=== PATIENT | male | born 1990 | race Caucasian/White ===

== ENCOUNTER 2022-05-27 11:00 | Outpatient (REF) | payer OTHER, SELFPAY | END 2022-05-27 11:01 | disposition home or self-care (01) | LOC: HO.HOSX 11:00 | PROVIDERS: PCP Nurse Practitioner Family; Visit Provider Orthopaedic Surgery | DX: M54.2 Cervicalgia (principal) | CPT/HCPCS: 99202 ==

== ENCOUNTER 2022-06-08 15:06 | Outpatient (REF) | payer OTHER, SELFPAY ==
--- NOTE | ~2022-06-08 | XR_ITS ---
EXAMINATION: XR CERVICAL SPINE CLINICAL INFORMATION: Neck pain. COMPARISON: None. TECHNIQUE: 6 views of the cervical spine, inclusive of flexion and extension views, were obtained. FINDINGS: The vertebral heights and alignment is normal. No intrinsic bony abnormality. The disc heights and neural foramina are well maintained. There is mild irregularity involving this C6 superior endplate. The rest of the endplates and bone density are normal. On oblique views the neural foramina are widely patent. No acute fracture or subluxation seen. The surrounding prevertebral soft tissues are unremarkable. XR/XR cervical spine 5V IMPRESSION: No acute fracture, dislocation or subluxation seen.
--- NOTE | ~2022-06-08 | CT_ITS ---
CT CERVICAL SPINE WITHOUT CONTRAST HISTORY: 31 years old Male, cervicalgia TECHNIQUE: CT images of the cervical spine were acquired without intravenous contrast. This CT examination was performed using dose optimization techniques as appropriate, variously including the following: *Automated exposure control *Adjustment of mA and/or kV according to patient size (this includes techniques or standardized protocols for targeted exams where dose is matched to indication/reason for exam; i.e. extremities or head) *Use of iterative reconstruction technique DLP: 4-1 mGy-cm COMPARISON: None available. FINDINGS: There is an age indeterminate C6 superior endplate compression fracture resulting in mild height loss without significant bony retropulsion. Otherwise, no acute osseous injury or traumatic subluxation within the cervical spine. No prevertebral soft tissue swelling. The craniocervical junction is intact. Straightening of the normal cervical lordosis.. There is no significant spondylolisthesis. No suspicious osseous lesion. The intervertebral disc space heights are preserved. No spinal canal or neural foraminal stenosis at any level. OTHER: Visualized lung apices are clear. Indeterminate metallic foreign bodies within the right clivus, right retroclival soft tissues, right prevertebral soft tissues and nasopharynx. Right-sided palatine tonsilloliths. CT/CT cervical spine wo IV con IMPRESSION: There is an age indeterminate C6 superior endplate compression fracture resulting in mild height loss without significant bony retropulsion. Otherwise, no acute osseous injury or traumatic subluxation within the cervical spine. Indeterminate metallic foreign bodies within the right clivus, right retroclival soft tissues, right prevertebral soft tissues and nasopharynx.
== END 2022-06-08 15:07 | disposition home or self-care (01) ==
LOC: HO.CT 15:06
PROVIDERS: PCP Family Medicine; Visit Provider Orthopaedic Surgery
DX: M54.2 Cervicalgia (principal)
CPT/HCPCS: 72050; 72125

== ENCOUNTER 2022-06-10 22:12 | Emergency (ER) | payer OTHER, SELFPAY ==
[2022-06-10 22:35] VITALS: BP 142/93; PULSE 100; RESP 18; TEMP 36.3; O2SAT 99; BMI 25.7
--- NOTE | 2022-06-11 00:23 | ED_ITS ---
HPI - Neck Pain/Injury General Chief Complaint: Neck Pain/Injury Stated Complaint: neck pain, from neck injury Time Seen by Provider: 06/11/22 00:10 Source: patient Mode of arrival: ambulatory Limitations: no limitations History of Present Illness HPI Narrative: Patient comes to the emergency room complaining of chronic neck pain. Patient states that he has history of 2 cervical fractures, 1 of them over 10 years ago, 2nd 1 approximately 1 year ago. Patient states that for the last year he constantly has 3 to 4/10 pain constantly. Over the last month, the pain has been 8 to 10/10. Patient was seen by his primary care physician over a month ago, CT scan was done couple of days ago, patient has not received the CT scans yet. Patient states that for the last month he has had trouble moving his neck up and down, but is much worse rotating the neck sideways. Patient denies fever chills. Patient states that today there is nothing new regarding his symptoms. He is just tired of the constant pain. Patient has been prescribed gabapentin in the past but did not do anything for him. Patient states that sometimes he has burning sensation in his fingertips/pins and needles. Related Data Previous Rx's Medication Instructions Recorded cyclobenzaprine 10 mg tablet 10 mg PO TID PRN muscle spasm 30 05/11/22 days #90 tabs ondansetron HCl 4 mg tablet 4 mg PO Q6H PRN nausea and 06/11/22 vomiting #10 tabs oxycodone 5 mg tablet 5 mg PO BID PRN pain #8 tabs 06/11/22 Allergies Allergy/AdvReac Type Severity Reaction Status Date / Time morphine Allergy Mild patch on Verified 05/27/22 11:11 stomach Review of Systems Review of Systems: Constitutional : No Weight loss, No Fever, No Chills, No Night Sweats, No Fatigue, No Malaise ENT/Mouth : No Hearing loss, No Ear Pain, No Nasal Congestion, No Sinus Pain, No Hoarseness, No sore throat, No Rhinorrhea, No Swallowing Difficulty Eyes: No Eye Pain, No Swelling, No Redness, No Foreign Body, No Discharge, No Vision Changes Cardiovascular : No Chest Pain, No SOB, No Dyspnea on Exertion, No Orthopnea, No Edema, No Palpitations Respiratory : No Cough, No Sputum, No Wheezing, No Smoke Exposure, No Dyspnea Gastrointestinal : No Nausea, No Vomiting, No Diarrhea, No Constipation, No abdominal Pain, No Hematochezia, No Melena Genitourinary : no irregular bleeding, No Dysuria, No Urinary Frequency, No Hematuria, No Urinary Incontinence, No Urgency, No Flank Pain, No Urinary Flow Changes, No Hesitancy Musculoskeletal : Complaining of chronic posterior neck pain, No joint pain, No Myalgias, No Joint Swelling Skin : No Skin Lesions, No rash Neuro : No Weakness, No Numbness, No Paresthesias, No Loss of Consciousness, No Dizziness, No Headache Psych : No Anxiety/Panic, No Depression, No SI/HI/AH/VH, No Social Issues, Heme/Lymph: No Bruising, No Bleeding,No Lymphadenopathy Endocrine : No Polyuria, No Polydipsia, No Temperature Intolerance [facility] Past Medical History Medical History (Updated 06/11/22 @ 00:33 by Stormy Torrez MD) Neck fracture Social History Social History Housing: Apartment Patient Tobacco Use Status: Never used Tobacco e-Cigarette/Vaping Use: Never Used Second Hand Smoke Exposure: No Advance Directives: No Advance Directives Information Provided: No service: No Current occupational status: unemployed Current occupational exposures/hazards: No Physical Exam Vital Signs: Vital Signs: Last Vital Signs Temp 97.4 F 06/10/22 22:35 Pulse 100 06/10/22 22:35 Resp 18 06/10/22 22:35 BP 142/93 H 06/10/22 22:35 Pulse Ox 99 06/10/22 22:35 O2 Del Method 06/10/22 22:35 BMI result Body Mass Index 25.7 Const: Other: Appearance: Alert. Oriented X3. No acute distress. Eyes: Pupils equal, round and reactive to light. ENT: Pharynx normal. Neck: Pain to palpation over C6, C7. Range of motion is very limited to flexion extension and sideways rotation. CVS: Normal heart rate and rhythm. Pulses normal. Normal S1 and S2 Respiratory: No respiratory distress. Breath sounds normal. No Wheezing. No rales Abdomen: Soft and nontender. No rigidity. No distention. Skin: Skin warm and dry. Normal skin color. Normal skin turgor. Extremities: No lower extremity edema. No Lacerations. No Rash Neuro: Oriented X 3. No motor deficit. No sensory deficit. Moving all extremities. No slurred speech. CN 2 through 12 grossly intact Psych: calm, cooperative, normal affect Course Course Course Narrative: Patient has chronic neck pain. History of cervical fractures x2. Since patient fractured his neck over a year ago, patient has had chronic neck pain. Patient states he has had severe pain for several weeks now. Patient reports radiculopathy to both upper extremities. Patient has not had any fever or chills. Meningitis is not suspected. Patient had a CT scan done 2 days ago here at this facility, outpatient. The CT scan has not been read yet. I discussed with our radiologist yet if we can ask our radiologist on-call to read the CT scan today follow up will have to scan the patient again -patient was given 1 dose of IM Toradol and 2 mg of Valium -despite Toradol and down, patient continues having pain. Patient given 1 dose of IM Dilaudid. P.o. Zofran. -I discussed the CT findings with the patient, patient has an age indeterminate C6 superior end plate compression fracture. Patient states that this is what he was told 1 year ago when he fractured his neck. -patient has already been seen by Dr. Mondragon from orthopedics. Patient will likely need a referral to Spine surgery (neurology orthopedics) Also, patient has an appointment pending with a pain specialist. -patient received 1 dose of IM Dilaudid -I had a prolonged conversation with the patient regarding his prescription for opiates, addiction. Patient states that he is very well aware. -patient agrees to use his prescription judiciously, and avoid narcotics. Patient states he mostly will use it at bedtime, patient has not slept in several days due to pain Medications Administered Discontinued Medications Generic Name Dose Route Start Last Admin Trade Name Keo PRN Reason Stop Dose Admin Diazepam 2 mg 06/11/22 00:19 06/11/22 00:26 Diazepam 2 Mg Tablet PO 06/11/22 00:20 2 mg ONCE ONE Administration Ketorolac Tromethamine 60 mg 06/11/22 00:19 06/11/22 00:26 Ketorolac Tromethamine 60 Mg/2 Ml Vial IM 06/11/22 00:20 60 mg ONCE ONE Administration Medical Decision Making Differential Diagnosis Differential Diagnoses: The differential diagnosis associated with the presentation includes (Meningitis, cervical fracture) Independent Interpretation I performed an independent interpretation of an: CT Scan (My interpretation: Questionable fracture in C6. I will wait for the radiology report) Radiology Impression Discussion of test interpretation with radiology: I have reviewed the radiologist's reading. Radiologist Impression: FINDINGS: There is an age indeterminate C6 superior endplate compression fracture resulting in mild height loss without significant bony retropulsion. Otherwise, no acute osseous injury or traumatic subluxation within the cervical spine. No prevertebral soft tissue swelling.? The craniocervical junction is intact. Straightening of the normal cervical lordosis.. There is no significant spondylolisthesis. No suspicious osseous lesion. The intervertebral disc space heights are preserved. No spinal canal or neural foraminal stenosis at any level. OTHER: Visualized lung apices are clear. Indeterminate metallic foreign bodies within the right clivus, right retroclival soft tissues, right prevertebral soft tissues and nasopharynx. Right-sided palatine tonsilloliths. CT/CT cervical spine wo IV con IMPRESSION: There is an age indeterminate C6 superior endplate compression fracture resulting in mild height loss without significant bony retropulsion. Otherwise, no acute osseous injury or traumatic subluxation within the cervical spine. ? Indeterminate metallic foreign bodies within the right clivus, right retroclival soft tissues, right prevertebral soft tissues and nasopharynx. Discharge Plan Discharge Clinical Impression: Chronic neck pain Patient Disposition: Home, Self-Care Instructions: Vertebral Compression Fracture (ED) Additional Instructions: Please follow-up with your primary care physician tomorrow. If you have any worsening or new symptoms, please return to the emergency room or call 911 Prescriptions: New oxycodone 5 mg tablet 5 mg PO BID PRN (Reason: pain) Qty: 8 0RF Rx Instructions: Partial Fill upon patient request. ondansetron HCl 4 mg tablet 4 mg PO Q6H PRN (Reason: nausea and vomiting) Qty: 10 0RF No Action cyclobenzaprine 10 mg tablet 10 mg PO TID PRN (Reason: muscle spasm) 30 Days Qty: 90 0RF
[2022-06-11] MEDS: diazePAM 2 MG TABLET PO (00:26)
[2022-06-11] MEDS: Ketorolac Tromethamine 60 MG/2 ML VIAL IM (00:26)
[2022-06-11 01:15] VITALS: RESP 15
[2022-06-11] MEDS: Ondansetron ODT 4 MG TAB.RAPDIS TRANSLINGU (01:15)
[2022-06-11] MEDS: HYDROmorphone HCl 0.5 MG/0.5 ML SYRINGE 0.1 MG IM (01:15)
== END 2022-06-11 01:31 | disposition home or self-care (01) ==
PROVIDERS: Emergency Provider Emergency Medicine; PCP Family Medicine
DX: M54.2 Cervicalgia (principal); Z79.899 Other long term (current) drug therapy
CPT/HCPCS: 96372; 99284; J1170; J1885

== ENCOUNTER → 2022-06-27 08:01 | Outpatient (BNVA) | payer OTHER, SELFPAY | PROVIDERS: PCP Family Medicine; Visit Provider Internal Medicine | DX: M54.2 Cervicalgia (principal) | CPT/HCPCS: 99202 ==

== ENCOUNTER 2022-10-27 07:42 | Outpatient (REF) | payer OTHER, SELFPAY ==
[2022-10-27 10:58] LABS: MANUAL DIFF FLAG NO
[2022-10-27 11:29] LABS: Basophils Absolute Auto 0.1 X10*3/uL (0.0-0.2); Basophils Percent Auto 0.9 % (0-2); Eosinophils Absolute Auto 0.2 X10*3/uL (0.0-0.4); Eosinophils Percent Auto 3.1 % (0-4); Hematocrit 47.8 % (42.0-52.0); Hemoglobin 15.5 g/dl (14.0-18.0); Imm Gran Pct Auto 1.6 % (0.0-0.4); Lymphocytes Absolute Auto 2.6 X10*3/uL (1.2-4.9); Lymphocytes Percent Auto 40.4 % (20-40); Mean Corpuscular HGB Conc 32.4 g/dl (31.0-36.0); Mean Corpuscular Hemoglobin 29.1 pg (27.0-33.0); Mean Corpuscular Volume 89.8 fL (80.0-98.0); Mean Platelet Volume 9.4 fL (9.4-12.4); Monocytes Absolute Auto 0.6 X10*3/uL (0.1-1.2); Monocytes Percent Auto 8.5 % (2-11); Neutrophils Absolute Auto 2.9 x10*3/uL (2.0-8.3); Neutrophils Percent Auto 45.5 % (45-73); Platelet Count 234 X10*3/uL (160-400); Red Blood Count 5.32 X10*6/uL (4.60-5.80); Red Cell Distribution Width 11.9 % (11.0-16.0); White Blood Count 6.4 X10*3/uL (4.8-10.8)
[2022-10-27 11:37] LABS: Alanine Aminotransferase 39 U/L (0-40); Albumin Level 4.4 g/dL (3.5-5.0); Alkaline Phosphatase 76 U/L (39-117); Anion Gap 12 (12-20); Aspartate Amino Transferase 25 U/L (5-37); Bilirubin Total 0.3 mg/dL (0.0-1.0); Blood Urea Nitrogen 17 mg/dL (9-16); Calcium 9.7 mg/dL (8.4-10.2); Carbon Dioxide 28 mmol/L (22-29); Chloride 105 mmol/L (96-108); Cholesterol 201 mg/dL; Estimated Glomerular Filt Rate > 60; Glucose Fasting 89 mg/dL (60-99); HDL Cholesterol 40 mg/dL; LDL Cholesterol Calculated 112 mg/dl; Potassium 4.7 mmol/L (3.3-5.1); Sodium 140 mmol/L (135-145); Total Protein 7.7 g/dL (6.5-8.0); Triglycerides 247 mg/dL
[2022-10-27 11:54] LABS: TSH reflex Free T4 3.73 uIU/mL (0.32-4.0)
== END 2022-10-27 07:43 | disposition home or self-care (01) ==
LOC: HO.WFDLDS 07:42
PROVIDERS: Visit Provider Nurse Practitioner Family
DX: Z00.00 Encounter for general adult medical examination without abnormal findings (principal); F41.9 Anxiety disorder, unspecified; F32.A Depression, unspecified
CPT/HCPCS: 36415; 80053; 80061; 84443; 85025

== ENCOUNTER 2022-11-02 09:25 | Outpatient (REF) | payer OTHER, SELFPAY ==
[2022-11-11 21:17] LABS: PSA, Ultra Sensitive 0.64 ng/mL
== END 2022-11-02 09:26 | disposition home or self-care (01) ==
LOC: HO.WFDLDS 09:25
PROVIDERS: Visit Provider Nurse Practitioner Family
DX: Z12.5 Encounter for screening for malignant neoplasm of prostate (principal); R39.11 Hesitancy of micturition
CPT/HCPCS: 36415; 84153

== ENCOUNTER 2023-01-03 12:50 | Outpatient (REF) | payer OTHER, SELFPAY ==
[2023-01-03 14:49] LABS: Cholesterol 194 mg/dL; HDL Cholesterol 42 mg/dL; LDL Cholesterol Calculated 118 mg/dl; Triglycerides 172 mg/dL
== END 2023-01-03 12:51 | disposition home or self-care (01) ==
LOC: HO.WFDLDS 12:50
PROVIDERS: Visit Provider Nurse Practitioner Family
DX: E78.1 Pure hyperglyceridemia (principal)
CPT/HCPCS: 36415; 80061

== ENCOUNTER 2023-01-04 09:05 | Outpatient (AMB) | payer OTHER, SELFPAY ==
--- NOTE | 2023-01-04 09:10 | A.OFFPC_ITS ---
Vital Signs 01/04/23 09:11 Height 6 ft Weight 204 lb BMI 27.7 BP 112/64 Blood Pressure Location Rt brachial Position Sitting Respiration 16 Pulse 72 Pulse Source Pulse Oximeter Temp 98.7 F Temp Source Temporal Artery Scan Pulse Oximetry (%) 100 Oxygen Delivery Method Room Air Intake Visit Reasons: 2 mos anxiety, depression Intake Note: Patient presents today for a follow up for anxiety and depression. Patient see's Mani Steele for psychiatry who prescribes patient with Clonazepam 1mg twice daily. Patient reports no concerns today. Compensator Required: No Accompanied by: Self / Same As Patient Allergies morphine Allergy (Mild, Verified 01/04/23 09:29) patch on stomach Medication List - Last Reconciled 01/04/23 by Eliseo Dumont CNP clonazepam 1 mg PO BID cyclobenzaprine 10 mg PO TID PRN 30 days Tobacco use date assessed: 09/28/22 Dental Screening Dental Screen Date: 01/04/23 Did you have a dental visit in the last 12 months?: No Did you have a dental problem in the last 6 months where you did not have access to dental care?: No Was dental information given to patient?: Yes HPI HPI Comments History of Present Illness Details 32-year-old male presents for anxiety and depression follow-up He notes he is followed by [facility] and has a therapist whom he sees every two weeks and a psychiatrist every 2 weeks. His psychiatrist manages his psychotropic medications. He is currently on clonazepam 1 mg twice daily. He notes he has been maintaining healthy and low fat diet. [facility], [facility] Medical History Diverticulitis Neck fracture Surgical History H/O resection of small bowel History of appendectomy Family History Mother Anxiety Father Anxiety Family/Other Anxiety Social History Housing: Apartment Patient Tobacco Use Status: Never used Tobacco e-Cigarette/Vaping Use: Former Use Second Hand Smoke Exposure: No service: No Current occupational status: employed Current occupation: [employer] Current occupational exposures/hazards: No Cognitive needs: No Hearing needs: No Vision needs: No Questionnaire PHQ-9 Over the last 2 weeks, how often have you been bothered by any of the following problems? 1. Little interest or pleasure in doing things: not at all 2. Feeling down, depressed, or hopeless: not at all 3. Trouble falling or staying asleep, or sleeping too much: not at all 4. Feeling tired or having little energy: not at all 5. Poor appetite or overeating: more than half the days 6. Feeling bad about yourself - or that you are a failure or have let yourself or your family down: not at all 7. Trouble concentrating on things, such as reading the newspaper or watching television: not at all 8. Moving or speaking so slowly that other people could have noticed. Or the opposite - being so fidgety or restless that you have been moving around a lot more than usual: not at all 9. Thoughts that you would be better off or of hurting yourself in some way: not at all Total score: 2 Depression Screening Interpretation: Negative Source: Developed by Drs. Geo Templeton, Ludmila Golden, Ashu Wong and colleagues, with an educational janki from [employer]. Thrive Questionnaire Date Thrive assessed: 05/06/22 DAR-7 AMB Questionnaire DAR-7 Date DAR - 7 assessed: 01/04/23 Feeling nervous, anxious, or on edge: 1 = Several days Not being able to stop or control worryin = Not at all Worrying too much about different things: 0 = Not at all Trouble relaxin = Several days Being so restless that it is hard to sit still: 0 = Not at all Becoming easily annoyed or irritable: 1 = Several days Feeling afraid as if something awful might happen: 0 = Not at all Total DAR-7 score (0-4 normal; 5-9 mild; 10-14 moderate; 15-21 severe): 3 Source: Developed by Drs. Geo Templeton, Ludmila Golden, Ashu Wong and colleagues, with an educational janki from [employer]. DAR-7 Assessment Billing DAR-7 Assessment Tool: DAR-7 Assessment 52036 Review of Systems Const Details: Const Denies chills, Denies fatigue, Denies fever(s), Denies headache(s) and Denies weakness ENT Denies dizziness and Denies headache(s) Card Denies chest pain, Denies lightheadedness, Denies dyspnea and Denies other (Palpitations) Resp Denies cough, Denies dyspnea, Denies wheezing and Denies other ( shortness of breath) GI Denies abdominal pain, Denies melena, Denies hematochezia, Denies change in bowel habits, Denies dyspepsia and Denies nausea Denies hematuria and Denies dysuria Musc Denies abnormal gait, Denies myalgias, Denies arthralgias, Denies numbness and Denies tingling Skin/Breast Denies rash, Denies unusual bruising and Denies wounds Neuro Denies abnormal gait, Denies dizziness, Denies headache(s), Denies memory loss, Denies numbness, Denies Sensory deficit (Neuro), Denies tingling and Denies weakness Psych Denies anxiety, Denies depression, Denies memory loss Endo Denies cold intolerance, Denies fatigue, Denies heat intolerance, Denies polydipsia and Denies polyuria Aller/Immun Denies wheezing Physical exam (Primary Care) Vital Signs: Last Vital Signs Temp 98.7 F 01/04/23 09:11 Pulse 72 01/04/23 09:11 Resp 16 01/04/23 09:11 BP 112/64 01/04/23 09:11 Pulse Ox 100 01/04/23 09:11 Oxygen Delivery Method Room Air 01/04/23 09:11 BMI result Body Mass Index 27.7 Tobacco/Smoking Status: Tobacco use Status Tobacco use date assessed 09/28/22 01/04/23 09:12 Patient Tobacco Use Status Never used Tobacco 01/04/23 09:12 e-Cigarette/Vaping Use Former Use 01/04/23 09:12 PHQ-9: PHQ-9 Score PHQ-9: Total score 2 01/04/23 09:32 Depression Screening Interpretation: Negative Thrive Assessment: Date of Thrive Assessment Date Thrive assessed 05/06/22 01/04/23 09:12 Const Other: General: no acute distress and well developed Nutritional Appearance: well nourished Orientation/consciousness: patient oriented x3 HENMT Head: Yes normocephalic and Yes atraumatic Eyes General: appearance normal, both eyes and all related structures Pupils: Equal, round and reactive pupils present EOM: EOMs intact bilaterally Resp Effort & Inspection: normal respiratory effort Auscultation: clear to auscultation bilaterally Cardio Rate: regular rate Rhythm: regular rhythm Heart sounds: S1 normal heart sound present, S2 normal heart sound present, no gallops, no murmurs and no rubs GI Palpation (GI): No Abdominal aortic bruit present, Soft to palpation, nontender, No hepatosplenomegaly present and No Rebound tenderness present Auscultation: normal bowel sounds General: Yes no CVA tenderness Back/Spine/Pelvis Back: no CVA tenderness Cervical Spine: cervical ROM normal and No Cervical spine tenderness Thoracic/Lumbar Spine: thoraco-lumbar ROM normal, No pain with thoraco-lumbar ROM, No thoracic spinal tenderness and No lumbar spinal tenderness Extrem General: Yes normal to inspection, No edema and No calf tenderness Skin General: warm and dry. Normal skin color. Normal skin turgor Lesions: no lesions Rashes: no rashes Trauma: no lacerations or abrasions Wounds: no wounds Nails: normal Neuro General: patient oriented x3, gait normal and no focal neuro deficit Cranial nerves: Yes Equal, round and reactive pupils present Cognition (Neuro): normal cognition Gait exam (Neuro): Normal gait present Sensory Exam: No Sensory deficit (Neuro) Psych Appearance: grossly normal Affect: normal affect Attitude: cooperative Thought process: Normal thought process present Assessment and Plan Assessment & Plan (1) Anxiety and depression: Code(s): F41.9 - Anxiety disorder, unspecified; F32.A - Depression, unspecified Plan: PHQ-9 and DAR-7 scores are normal Continue with current treatment regimen Continue to follow up with psychiatrist as planned Routine exercise encouraged Follow-up in 4 months or return sooner with worsening or new symptoms Verbalized understanding and agreed with treatment plan. (2) Hypertriglyceridemia: Code(s): E78.1 - Pure hyperglyceridemia Plan: Triglycerides improved from 247 to 172 in the past 2 months Advised to limit foods high in saturated fat and avoid foods high trans fat Routine exercise encouraged Will check lipids level at his next visit 4 months Return sooner with symptoms or concerns Verbalized understanding and agreed with treatment plan. Orders: Orders Lipid Panel 4 Months E78.1 - Pure hyperglyceridemia Coding Level of Care Code Est Pt Level 3 (24307) Diagnoses Anxiety and depression F41.9; F32.A Hypertriglyceridemia E78.1 Additional Codes DAR-7 Assessment Billing - DAR-7 Assessment Tool: DAR-7 Assessment 07810 ([id number]) Time Spent (min) 25
[2023-01-04 09:11] VITALS: BP 112/64; PULSE 72; RESP 16; TEMP 37.1; O2SAT 100; BMI 27.7
== END 2023-01-04 09:43 | disposition home or self-care (01) ==
PROVIDERS: PCP Nurse Practitioner Family; Visit Provider Nurse Practitioner Family
DX: F41.9 Anxiety disorder, unspecified (principal); F32.A Depression, unspecified; E78.1 Pure hyperglyceridemia
CPT/HCPCS: 99213

== ENCOUNTER 2023-01-10 10:32 | Outpatient (AMB) | payer OTHER, SELFPAY ==
[2023-01-10 10:33] VITALS: BP 116/70; PULSE 100; RESP 12; TEMP 36.7; O2SAT 99; BMI 27.3
--- NOTE | 2023-01-10 10:33 | A.OFFPC_ITS ---
Vital Signs 01/10/23 10:33 Height 6 ft Weight 201 lb 2 oz BMI 27.3 BP 116/70 Blood Pressure Location Rt brachial Position Sitting Respiration 12 Pulse 100 Pulse Source Pulse Oximeter Temp 98.1 F Temp Source Temporal Artery Scan Pulse Oximetry (%) 99 Oxygen Delivery Method Room Air Intake Visit Reasons: left ear irrigation Intake Note: Patient would like to know if he could get both ears irrigated today. Motion Picture Commentator Required: No Accompanied by: Self / Same As Patient Allergies morphine Allergy (Mild, Verified 01/10/23 11:05) patch on stomach Medication List - Last Reconciled 01/10/23 by Eliseo Dumont CNP buspirone 10 mg PO BID clonazepam 1 mg PO BID cyclobenzaprine 10 mg PO TID PRN 30 days Tobacco use date assessed: 09/28/22 Dental Screening Dental Screen Date: 01/10/23 Did you have a dental visit in the last 12 months?: No Did you have a dental problem in the last 6 months where you did not have access to dental care?: Yes Was dental information given to patient?: Yes HPI HPI Comments History of Present Illness Details 32-year-old male presents with complaints of decreased hearing and requests cerumen removal. He has history of impacted cerumen to both ears. No acute complaints today. PFSH Medical History Diverticulitis Neck fracture Surgical History H/O resection of small bowel History of appendectomy Family History Mother Anxiety Father Anxiety Family/Other Anxiety Social History Housing: Apartment Patient Tobacco Use Status: Never used Tobacco e-Cigarette/Vaping Use: Former Use Second Hand Smoke Exposure: No service: No Current occupational status: employed Current occupation: [employer] Current occupational exposures/hazards: No Cognitive needs: No Hearing needs: No Vision needs: No Questionnaire Thrive Questionnaire Date Thrive assessed: 05/06/22 DAR-7 AMB Questionnaire DAR-7 Date DAR - 7 assessed: 01/04/23 Source: Developed by Drs. Geo Templeton, Ludmila Golden, Ashu Wong and colleagues, with an educational janki from [employer]. Review of Systems Const Details: Const Denies chills, Denies fatigue, Denies fever(s), Denies headache(s) and Denies weakness ENT Reports as per HPI Card Denies chest pain, Denies lightheadedness, Denies dyspnea and Denies other (Palpitations) Resp Denies cough, Denies dyspnea, Denies wheezing and Denies other ( shortness of breath) GI Denies abdominal pain, Denies melena, Denies hematochezia, Denies change in bowel habits, Denies dyspepsia and Denies nausea Denies hematuria and Denies dysuria Musc Denies abnormal gait, Denies myalgias, Denies arthralgias, Denies numbness and Denies tingling Skin/Breast Denies rash, Denies unusual bruising and Denies wounds Neuro Denies abnormal gait, Denies dizziness, Denies headache(s), Denies memory loss, Denies numbness, Denies Sensory deficit (Neuro), Denies tingling and Denies weakness Psych Denies anxiety, Denies depression, Denies memory loss Endo Denies cold intolerance, Denies fatigue, Denies heat intolerance, Denies polydipsia and Denies polyuria Aller/Immun Denies wheezing Physical exam (Primary Care) Vital Signs: Last Vital Signs Temp 98.1 F 01/10/23 10:33 Pulse 100 01/10/23 10:33 Resp 12 01/10/23 10:33 BP 116/70 01/10/23 10:33 Pulse Ox 99 01/10/23 10:33 Oxygen Delivery Method Room Air 01/10/23 10:33 BMI result Body Mass Index 27.3 Tobacco/Smoking Status: Tobacco use Status Tobacco use date assessed 09/28/22 01/10/23 10:34 Patient Tobacco Use Status Never used Tobacco 01/10/23 10:34 e-Cigarette/Vaping Use Former Use 01/10/23 10:34 Thrive Assessment: Date of Thrive Assessment Date Thrive assessed 05/06/22 01/10/23 10:34 Const Other: General: no acute distress and well developed Nutritional Appearance: well nourished Orientation/consciousness: patient oriented x3 HENMT Head is normocephalic Impacted cerumen of both ears occluding the TMs Nasal turbinates and oropharynx are pink and moist Sinuses are nontender with palpation No auricular or cervical lymphadenopathy Eyes General: appearance normal, both eyes and all related structures Pupils: Equal, round and reactive pupils present EOM: EOMs intact bilaterally Resp Effort & Inspection: normal respiratory effort Auscultation: clear to auscultation bilaterally Cardio Rate: regular rate Rhythm: regular rhythm Heart sounds: S1 normal heart sound present, S2 normal heart sound present, no gallops, no murmurs and no rubs GI Palpation (GI): No Abdominal aortic bruit present, Soft to palpation, nontender, No hepatosplenomegaly present and No Rebound tenderness present Auscultation: normal bowel sounds General: Yes no CVA tenderness Back/Spine/Pelvis Back: no CVA tenderness Cervical Spine: cervical ROM normal and No Cervical spine tenderness Thoracic/Lumbar Spine: thoraco-lumbar ROM normal, No pain with thoraco-lumbar ROM, No thoracic spinal tenderness and No lumbar spinal tenderness Extrem General: Yes normal to inspection, No edema and No calf tenderness Skin General: warm and dry. Normal skin color. Normal skin turgor Lesions: no lesions Rashes: no rashes Trauma: no lacerations or abrasions Wounds: no wounds Nails: normal Neuro General: patient oriented x3, gait normal and no focal neuro deficit Cranial nerves: Yes Equal, round and reactive pupils present Cognition (Neuro): normal cognition Gait exam (Neuro): Normal gait present Sensory Exam: No Sensory deficit (Neuro) Psych Appearance: grossly normal Affect: normal affect Attitude: cooperative Thought process: Normal thought process present Assessment and Plan Assessment & Plan (1) Impacted cerumen of both ears: Code(s): H61.23 - Impacted cerumen, bilateral Plan: Cerumen irrigated from both ears with warm water Patient reports significant hearing improvement Normal ear canal and TM bilaterally Return with concerns or symptoms Verbalized understanding and agreed with the plan. Coding Level of Care Code Est Pt Level 3 (88199) Diagnoses Impacted cerumen of both ears H61.23
== END 2023-01-10 11:10 | disposition home or self-care (01) ==
PROVIDERS: PCP Nurse Practitioner Family; Visit Provider Nurse Practitioner Family
DX: H61.23 Impacted cerumen, bilateral (principal)
CPT/HCPCS: 99213

== ENCOUNTER 2023-05-12 10:25 | Outpatient (AMB) | payer OTHER, SELFPAY ==
[2023-05-12 10:29] VITALS: BP 138/80; PULSE 110; RESP 13; TEMP 36.4; O2SAT 99; BMI 26.4
--- NOTE | 2023-05-12 10:29 | A.OFFPC_ITS ---
Vital Signs 05/12/23 10:29 05/12/23 10:55 Height 6 ft Weight 195 lb BMI 26.4 BP 138/80 116/80 Blood Pressure Location Rt brachial Rt brachial Position Sitting Sitting Respiration 13 Pulse 110 H Pulse Source Pulse Oximeter Temp 97.6 F Temp Source Temporal Artery Scan Pulse Oximetry (%) 99 Oxygen Delivery Method Room Air Intake Visit Reasons: High BP Intake Note: Patient states that he notices that in the later afternoon and evening is when his blood pressure starts to get high. Horticultural Manager Required: No Accompanied by: Self / Same As Patient Allergies morphine Allergy (Mild, Verified 05/12/23 10:43) patch on stomach Medication List - Last Reconciled 05/12/23 by Eliseo Dumont CNP clonazepam 1 mg PO BID cyclobenzaprine 10 mg PO TID PRN 30 days duloxetine 20 mg PO DAILY Tobacco use date assessed: 05/12/23 Dental Screening Dental Screen Date: 05/12/23 Did you have a dental visit in the last 12 months?: No Did you have a dental problem in the last 6 months where you did not have access to dental care?: No Was dental information given to patient?: Patient has dentist HPI HPI Comments History of Present Illness Details 32-year-old male presents with complaint s of elevated home blood pressure readings He notes elevated blood pressure readings mid to late afternoon since he started taking Duloxetine a month ago. He reports associated intermittent blurry vision and palpitations. He reports home SBP in the 150s and DBP between 91-105 He notes that his BP was 159/109 at his psychiatrist office yesterday Patient states that he notices that in the later afternoon and evening is when his blood pressure starts to get high He admits to taking his medications as prescribed and reports controlled anxiety and depression symptoms on current treatment regimen ON LICENSE OF [facility] Medical History Diverticulitis Neck fracture Surgical History History of appendectomy H/O resection of small bowel Family History Mother Anxiety Father Anxiety Family/Other Anxiety Social History Housing: Apartment Patient Tobacco Use Status: Never used Tobacco e-Cigarette/Vaping Use: Former Use Second Hand Smoke Exposure: No service: No Current occupational status: employed Current occupation: [employer] Current occupational exposures/hazards: No Cognitive needs: No Hearing needs: No Vision needs: No Questionnaire Thrive Questionnaire Date Thrive assessed: 05/06/22 DAR-7 AMB Questionnaire DAR-7 Date DAR - 7 assessed: 01/04/23 Source: Developed by Drs. Geo Templeton, Ludmila Golden, Ashu Wong and colleagues, with an educational janki from [employer]. Review of Systems Const Details: Const Denies chills, Denies fatigue, Denies fever(s), Denies headache(s) and Denies weakness ENT Denies dizziness and Denies headache(s) Card Denies chest pain, Denies lightheadedness, Denies dyspnea and Denies other (Palpitations) Resp Denies cough, Denies dyspnea, Denies wheezing and Denies other ( shortness of breath) GI Denies abdominal pain, Denies melena, Denies hematochezia, Denies change in bowel habits, Denies dyspepsia and Denies nausea Denies hematuria and Denies dysuria Musc Denies abnormal gait, Denies myalgias, Denies arthralgias, Denies numbness and Denies tingling Skin/Breast Denies rash, Denies unusual bruising and Denies wounds Neuro Denies abnormal gait, Denies dizziness, Denies headache(s), Denies memory loss, Denies numbness, Denies Sensory deficit (Neuro), Denies tingling and Denies weakness Psych Denies anxiety, Denies depression, Denies memory loss Endo Denies cold intolerance, Denies fatigue, Denies heat intolerance, Denies polydipsia and Denies polyuria Aller/Immun Denies wheezing Physical exam (Primary Care) Vital Signs: Last Vital Signs Temp 97.6 F 05/12/23 10:29 Pulse 110 H 05/12/23 10:29 Resp 13 05/12/23 10:29 BP 138/80 05/12/23 10:29 Pulse Ox 99 05/12/23 10:29 Oxygen Delivery Method Room Air 05/12/23 10:29 BMI result Body Mass Index 26.4 Tobacco/Smoking Status: Tobacco use Status Tobacco use date assessed 05/12/23 05/12/23 10:38 Patient Tobacco Use Status Never used Tobacco 05/12/23 10:38 e-Cigarette/Vaping Use Former Use 05/12/23 10:38 Thrive Assessment: Date of Thrive Assessment Date Thrive assessed 05/06/22 05/12/23 10:38 Const Other: General: no acute distress and well developed Nutritional Appearance: well nourished Orientation/consciousness: patient oriented x3 HENMT Head: Yes normocephalic and Yes atraumatic Eyes General: appearance normal, both eyes and all related structures Pupils: Equal, round and reactive pupils present EOM: EOMs intact bilaterally Resp Effort & Inspection: normal respiratory effort Auscultation: clear to auscultation bilaterally Cardio Rate: regular rate Rhythm: regular rhythm Heart sounds: S1 normal heart sound present, S2 normal heart sound present, no gallops, no murmurs and no rubs GI Palpation (GI): No Abdominal aortic bruit present, Soft to palpation, nontender, No hepatosplenomegaly present and No Rebound tenderness present Auscultation: normal bowel sounds General: Yes no CVA tenderness Back/Spine/Pelvis Back: no CVA tenderness Cervical Spine: cervical ROM normal and No Cervical spine tenderness Thoracic/Lumbar Spine: thoraco-lumbar ROM normal, No pain with thoraco-lumbar ROM, No thoracic spinal tenderness and No lumbar spinal tenderness Extrem General: Yes normal to inspection, No edema and No calf tenderness Skin General: warm and dry. Normal skin color. Normal skin turgor Neuro General: patient oriented x3, gait normal and no focal neuro deficit Cranial nerves: Yes Equal, round and reactive pupils present Cognition (Neuro): normal cognition Gait exam (Neuro): Normal gait present Sensory Exam: No Sensory deficit (Neuro) Psych Appearance: grossly normal Affect: normal affect Attitude: cooperative Thought process: Normal thought process present Assessment and Plan Assessment & Plan (1) Elevated blood pressure reading without diagnosis of hypertension: Code(s): R03.0 - Elevated blood-pressure reading, without diagnosis of hypertension Plan: Reports elevated blood pressure readings at home and at his psychiatrist office, 150s/90-109. Reports associated intermittent blurry vision and palpitations. Notes controlled anxiety and depression symptoms Resting blood pressure is normal, 116/80 His symptoms may be attributed to the duloxetine he is on. Informed that elevated BP, blurred vision, and palpitations are common side effects of duloxetine. Anxiety may also cause elevated blood pressure Encouraged to discuss these symptoms with his psychiatrist Routine exercise and deep breathing/relaxation techniques encouraged Return with worsening or new symptoms or persistently elevated blood pressure readings Verbalized understanding and agreed with treatment plan (2) Anxiety and depression: Code(s): F41.9 - Anxiety disorder, unspecified; F32.A - Depression, unspecified Plan: Reports controlled symptoms Continue current treatment regimen Continue follow-up with psychiatrist as planned Verbalized understanding and agreed with treatment plan Coding Level of Care Code Est Pt Level 3 (39194) Diagnoses Elevated blood pressure reading without diagnosis of hypertension R03.0 Anxiety and depression F41.9; F32.A
[2023-05-12 10:55] VITALS: BP 116/80
== END 2023-05-12 11:12 | disposition home or self-care (01) ==
PROVIDERS: PCP Nurse Practitioner Family; Visit Provider Nurse Practitioner Family
DX: R03.0 Elevated blood-pressure reading, without diagnosis of hypertension (principal); F41.9 Anxiety disorder, unspecified; F32.A Depression, unspecified
CPT/HCPCS: 99213

== ENCOUNTER 2024-01-01 14:02 | Outpatient (AMB) | payer OTHER, SELFPAY ==
--- NOTE | 2024-01-01 14:30 | A.OFFPC_ITS ---
Vital Signs 01/01/24 14:35 Height 6 ft Weight 222 lb 4 oz BMI 30.1 BP 130/90 H Blood Pressure Location Lt brachial Position Sitting Respiration 20 Pulse 124 H Pulse Source Pulse Oximeter Temp 98 F Temp Source Tympanic Pulse Oximetry (%) 97 Oxygen Delivery Method Room Air Intake Visit Reasons: High BP Follow up / sleep study order Intake Note: follow up on medication pt would like to talk about a med change, er requested for patient to see a wooden fence erector and ge a sleep study,er doctor told pt he may have sleep apnea. Allergies morphine Allergy (Mild, Verified 01/01/24 14:45) patch on stomach Medication List - Last Reconciled 01/01/24 by Eliseo Dumont CNP clonazepam 1 mg PO BID Tobacco use date assessed: 05/12/23 Dental Screening Dental Screen Date: 05/12/23 HPI HPI Comments History of Present Illness Details 33-year-old male presents for an ED foll ow up visit. He notes that he was recently evaluated for chest pain at [facility] ED. his blood pressure was elevated. Cardiology follow-up and sleep studies were recommended. Review [facility] ED documentation reveals the following: The patient was evaluated for chest pain on 12/23/2023. His blood pressure was 130/102. EKG, chest x-ray, and labs were unrevealing. He was referred to [facility] Cardiology. The patient notes that the he was informed that the cardiology referral was not made. He also requests a referral for sleep study when he notes was recommended at his recent ED visit. He admits to snoring as stated by his girlfriend. He notes that his HR is usually between 105 and 110 for the past 5 weeks. He reduded his caffeine/coffee consumption from 3-8 cups (8oz) daily to 1 cup daily. He also stopped using nicotine pouches about a month ago. He reports history of dizziness and extremely low blood pressure reading after taking a dose of propranolol. He has never taken metoprolol. [facility] Medical History Diverticulitis Neck fracture Surgical History History of appendectomy H/O resection of small bowel Family History Mother Anxiety Father Anxiety Family/Other Anxiety Social History Housing: Apartment Patient Tobacco Use Status: Never used Tobacco e-Cigarette/Vaping Use: Former Use Second Hand Smoke Exposure: No service: No Current occupational status: employed Current occupation: [employer] Current occupational exposures/hazards: No Cognitive needs: No Hearing needs: No Vision needs: No Questionnaire Thrive Questionnaire Date Thrive assessed: 05/06/22 DAR-7 AMB Questionnaire DAR-7 Date DAR - 7 assessed: 01/04/23 Source: Developed by Drs. Geo Templeton, Ludmila Golden, Ashu Wong and colleagues, with an educational janki from [employer]. Review of Systems Const Details: Const Denies chills, Denies fatigue, Denies fever(s), Denies headache(s) and Denies weakness ENT Denies dizziness and Denies headache(s) Card Denies chest pain, Denies lightheadedness, Denies dyspnea and Denies other (Palpitations) Resp Denies cough, Denies dyspnea, Denies wheezing and Denies other ( shortness of breath) GI Denies abdominal pain, Denies melena, Denies hematochezia, Denies change in bowel habits, Denies dyspepsia and Denies nausea Denies hematuria and Denies dysuria Musc Denies abnormal gait, Denies myalgias, Denies arthralgias, Denies numbness and Denies tingling Skin/Breast Denies rash, Denies unusual bruising and Denies wounds Neuro Denies abnormal gait, Denies dizziness, Denies headache(s), Denies memory loss, Denies numbness, Denies Sensory deficit (Neuro), Denies tingling and Denies weakness Psych Denies anxiety, Denies depression, Denies memory loss Endo Denies cold intolerance, Denies fatigue, Denies heat intolerance, Denies polydipsia and Denies polyuria Aller/Immun Denies wheezing Physical exam (Primary Care) Tobacco/Smoking Status: Tobacco use Status Tobacco use date assessed 05/12/23 12/28/23 10:17 Patient Tobacco Use Status Never used Tobacco 12/28/23 10:17 e-Cigarette/Vaping Use Former Use 12/28/23 10:17 Thrive Assessment: Date of Thrive Assessment Date Thrive assessed 05/06/22 12/28/23 10:17 Const Other: General: no acute distress and well developed Nutritional Appearance: well nourished Orientation/consciousness: patient oriented x3 [facility]: Yes normocephalic and Yes atraumatic Eyes General: appearance normal, both eyes and all related structures Pupils: Equal, round and reactive pupils present EOM: EOMs intact bilaterally Resp Effort & Inspection: normal respiratory effort Auscultation: clear to auscultation bilaterally Cardio Rate: regular rate Rhythm: regular rhythm Heart sounds: S1 normal heart sound present, S2 normal heart sound present, no gallops, no murmurs and no rubs GI Palpation (GI): No Abdominal aortic bruit present, Soft to palpation, nontender, No hepatosplenomegaly present and No Rebound tenderness present Auscultation: normal bowel sounds General: Yes no CVA tenderness Back/Spine/Pelvis Back: no CVA tenderness Cervical Spine: cervical ROM normal and No Cervical spine tenderness Thoracic/Lumbar Spine: thoraco-lumbar ROM normal, No pain with thoraco-lumbar ROM, No thoracic spinal tenderness and No lumbar spinal tenderness Extrem General: Yes normal to inspection, No edema and No calf tenderness Skin General: warm and dry. Normal skin color. Normal skin turgor Neuro General: patient oriented x3, gait normal and no focal neuro deficit Cranial nerves: Yes Equal, round and reactive pupils present Cognition (Neuro): normal cognition Gait exam (Neuro): Normal gait present Sensory Exam: No Sensory deficit (Neuro) Psych Appearance: grossly normal Affect: normal affect Attitude: cooperative Thought process: Normal thought process present Assessment and Plan Assessment & Plan (1) Elevated blood pressure reading without diagnosis of hypertension: Code(s): R03.0 - Elevated blood-pressure reading, without diagnosis of hypertension Plan: Reports history of elevated blood pressure and heart rate readings Resting blood pressure is 130/90, slightly above goal of less than 140/90 Resting heart rate is elevated, 124 Heart sounds regular rate and rhythm Recent cardiac workup was unremarkable Informed that his symptoms may be attributed to anxiety or panic attacks Will trial metoprolol 12.5 mg daily for tachycardia Encouraged to continue to take clonazepam as prescribed Continue follow-up with psychiatrist and therapist as planned Referred to Cardiology Follow-up in 2 weeks for tachy current or return sooner with symptoms or concerns Verbalized understanding and agreed with treatment plan (2) Tachycardia: Code(s): R00.0 - Tachycardia, unspecified Plan: As above (3) Snoring: Code(s): R06.83 - Snoring Plan: Referred to sleep medicine Orders: Referrals Sleep Medicine Referral R06.83 - Snoring Cardiology Referral R00.0 - Tachycardia, unspecified, R03.0 - Elevated blood- pressure reading, without diagnosis of hypertension Medications: New metoprolol tartrate 12.5 mg (1/2 x 25 mg) PO DAILY 30 days 15 tabs 0RF Coding Level of Care Code Est Pt Level 4 (50440) Complex EM visit Add On G2211 Diagnoses Elevated blood pressure reading without diagnosis of hypertension R03.0 Tachycardia R00.0 Snoring R06.83
[2024-01-01 14:35] VITALS: BP 130/90; PULSE 124; RESP 20; TEMP 36.6; O2SAT 97; BMI 30.1
== END 2024-01-01 15:13 | disposition home or self-care (01) ==
PROVIDERS: PCP Nurse Practitioner Family; Visit Provider Nurse Practitioner Family
DX: R03.0 Elevated blood-pressure reading, without diagnosis of hypertension (principal); R00.0 Tachycardia, unspecified; R06.83 Snoring
CPT/HCPCS: 99214; G2211

== ENCOUNTER 2024-01-15 16:08 | Outpatient (AMB) | payer OTHER, SELFPAY ==
--- NOTE | 2024-01-15 16:05 | A.OFFPC_ITS ---
Vital Signs 01/15/24 16:16 01/15/24 16:29 Height 6 ft Weight 220 lb 6 oz BMI 29.9 BP 144/78 H 130/80 Blood Pressure Location Rt brachial Rt brachial Position Sitting Sitting Respiration 16 Pulse 115 H 112 H Pulse Source Pulse Oximeter Auscultation Temp 98.5 F Temp Source Oral Pulse Oximetry (%) 98 Oxygen Delivery Method Room Air Intake Visit Reasons: 2 wks tachycardic Intake Note: patient here for 2 weeks follow up on tachycardia. Target Worker Required: No Allergies morphine Allergy (Mild, Verified 01/15/24 16:24) patch on stomach Medication List - Last Reconciled 01/15/24 by Eliseo Dumont CNP clonazepam 1 mg PO BID metoprolol tartrate 12.5 mg (1/2 x 25 mg) PO DAILY 30 days Tobacco use date assessed: 01/15/24 Dental Screening Dental Screen Date: 01/15/24 Did you have a dental visit in the last 12 months?: Yes Did you have a dental problem in the last 6 months where you did not have access to dental care?: No Was dental information given to patient?: Patient has dentist HPI HPI Comments History of Present Illness Details 33-year-old male presents for tachycardi a follow-up. He was seen for hospital discharge follow-up 2 weeks ago for chest pain. ED workup was unremarkable. He was referred to Cardiology and sleep medicine. His heart rate was elevated, 124. He was prescribed metoprolol tartrate 12.5 mg daily. He reports controlled symptoms, especially 30 minute to an hour after taking the medication; he does not feel palpitations in his heart and the buzzing sensation in his ear is improved; his symptoms progresses throughout the day. His heart rate has been the same, 112 and above. No acute symptoms at this time COUNT INCLUDES THE [facility] Medical History Diverticulitis Neck fracture Surgical History History of appendectomy H/O resection of small bowel Family History Mother Anxiety Father Anxiety Family/Other Anxiety Social History Housing: Apartment Patient Tobacco Use Status: Never used Tobacco e-Cigarette/Vaping Use: Former Use Second Hand Smoke Exposure: No service: No Current occupational status: employed Current occupation: [employer] Current occupational exposures/hazards: No Cognitive needs: No Hearing needs: No Vision needs: No Questionnaire PHQ-9 Over the last 2 weeks, how often have you been bothered by any of the following problems? 1. Little interest or pleasure in doing things: not at all 2. Feeling down, depressed, or hopeless: not at all 3. Trouble falling or staying asleep, or sleeping too much: nearly every day 4. Feeling tired or having little energy: not at all 5. Poor appetite or overeating: not at all 6. Feeling bad about yourself - or that you are a failure or have let yourself or your family down: not at all 7. Trouble concentrating on things, such as reading the newspaper or watching television: not at all 8. Moving or speaking so slowly that other people could have noticed. Or the opposite - being so fidgety or restless that you have been moving around a lot more than usual: not at all 9. Thoughts that you would be better off or of hurting yourself in some way: not at all Total score: 3 Depression Screening Done: Yes 93039 - PHQ-9 Billing: Yes Source: Developed by Drs. Geo Templeton, Ludmila Golden, Ashu Wong and colleagues, with an educational janki from [employer]. Thrive Questionnaire Date Thrive assessed: 05/06/22 AUDIT C Alcohol Use Questionnaire (AUDIT-C) 1. How often do you have a drink containing alcohol?: Never Total Score: 0 Score Reviewed/Action Taken: Yes ADR-7 AMB Questionnaire DAR-7 Date DAR - 7 assessed: 01/15/24 Feeling nervous, anxious, or on edge: 0 = Not at all Not being able to stop or control worryin = Not at all Worrying too much about different things: 0 = Not at all Trouble relaxin = Not at all Being so restless that it is hard to sit still: 0 = Not at all Becoming easily annoyed or irritable: 0 = Not at all Feeling afraid as if something awful might happen: 0 = Not at all Total DAR-7 score (0-4 normal; 5-9 mild; 10-14 moderate; 15-21 severe): 0 Source: Developed by Drs. Geo Templeton, Ludmila Golden, Ashu Wong and colleagues, with an educational janki from [employer]. DAR-7 Assessment Billing DAR-7 Assessment Tool: DAR-7 Assessment 30487 Review of Systems Const Details: Const Denies chills, Denies fatigue, Denies fever(s), Denies headache(s) and Denies weakness ENT Denies dizziness and Denies headache(s) Card Denies chest pain, Denies lightheadedness, Denies dyspnea and Denies other (Palpitations) Resp Denies cough, Denies dyspnea, Denies wheezing and Denies other ( shortness of breath) GI Denies abdominal pain, Denies melena, Denies hematochezia, Denies change in bowel habits, Denies dyspepsia and Denies nausea Denies hematuria and Denies dysuria Musc Denies abnormal gait, Denies myalgias, Denies arthralgias, Denies numbness and Denies tingling Skin/Breast Denies rash, Denies unusual bruising and Denies wounds Neuro Denies abnormal gait, Denies dizziness, Denies headache(s), Denies memory loss, Denies numbness, Denies Sensory deficit (Neuro), Denies tingling and Denies weakness Psych Denies anxiety, Denies depression, Denies memory loss Endo Denies cold intolerance, Denies fatigue, Denies heat intolerance, Denies polydipsia and Denies polyuria Aller/Immun Denies wheezing Physical exam (Primary Care) Tobacco/Smoking Status: Tobacco use Status Tobacco use date assessed 05/12/23 01/15/24 16:05 Patient Tobacco Use Status Never used Tobacco 01/15/24 16:05 e-Cigarette/Vaping Use Former Use 01/15/24 16:05 Thrive Assessment: Date of Thrive Assessment Date Thrive assessed 05/06/22 01/15/24 16:05 Const Other: General: no acute distress and well developed Nutritional Appearance: well nourished Orientation/consciousness: patient oriented x3 HENMT Head: Yes normocephalic and Yes atraumatic Eyes General: appearance normal, both eyes and all related structures Pupils: Equal, round and reactive pupils present EOM: EOMs intact bilaterally Resp Effort & Inspection: normal respiratory effort Auscultation: clear to auscultation bilaterally Cardio Rate: regular rate Rhythm: regular rhythm Heart sounds: S1 normal heart sound present, S2 normal heart sound present, no gallops, no murmurs and no rubs GI Palpation (GI): No Abdominal aortic bruit present, Soft to palpation, nontender, No hepatosplenomegaly present and No Rebound tenderness present Auscultation: normal bowel sounds General: Yes no CVA tenderness Back/Spine/Pelvis Back: no CVA tenderness Cervical Spine: cervical ROM normal and No Cervical spine tenderness Thoracic/Lumbar Spine: thoraco-lumbar ROM normal, No pain with thoraco-lumbar ROM, No thoracic spinal tenderness and No lumbar spinal tenderness Extrem General: Yes normal to inspection, No edema and No calf tenderness Skin General: warm and dry. Normal skin color. Normal skin turgor Neuro General: patient oriented x3, gait normal and no focal neuro deficit Cranial nerves: Yes Equal, round and reactive pupils present Cognition (Neuro): normal cognition Gait exam (Neuro): Normal gait present Sensory Exam: No Sensory deficit (Neuro) Psych Appearance: grossly normal Affect: normal affect Attitude: cooperative Thought process: Normal thought process present Assessment and Plan Assessment & Plan (1) Tachycardia: Code(s): R00.0 - Tachycardia, unspecified Plan: Resting blood pressure is 130/80, heart rate is 112 Will order metoprolol succinate 25 mg daily. Advised to take as prescribed. Instructed on the risks, benefits, and potential adverse reactions of the medication Encouraged to call Cardiology to schedule an appointment Follow-up in 2 weeks or sooner with worsening or new symptoms Verbalized understanding and agreed with the treatment plan Medications: New metoprolol succinate ER 25 mg PO DAILY 30 days 30 tabs 3RF Discontinued metoprolol tartrate Discontinued Reason: Doctor's Order 12.5 mg (1/2 x 25 mg) PO DAILY 30 days 15 tabs 0RF Coding Level of Care Code Est Pt Level 3 (72866) Diagnoses Tachycardia R00.0 Additional Codes DAR-7 Assessment Billing - DAR-7 Assessment Tool: DAR-7 Assessment 26176 ([id number])
[2024-01-15 16:16] VITALS: BP 144/78; PULSE 115; RESP 16; TEMP 36.9; O2SAT 98; BMI 29.9
[2024-01-15 16:29] VITALS: BP 130/80; PULSE 112
== END 2024-01-15 16:38 | disposition home or self-care (01) ==
PROVIDERS: PCP Nurse Practitioner Family; Visit Provider Nurse Practitioner Family
DX: R00.0 Tachycardia, unspecified (principal)
CPT/HCPCS: 99213

== ENCOUNTER 2024-01-30 10:59 | Outpatient (AMB) | payer OTHER, SELFPAY ==
--- NOTE | 2024-01-30 11:07 | MHC.PC.OV ---
Vital Signs 01/30/24 11:11 Height 6 ft Weight 217 lb 4 oz BMI 29.5 BP 138/74 Blood Pressure Location Rt brachial Position Sitting Respiration 16 Pulse 109 H Pulse Source Pulse Oximeter Temp 98.3 F Temp Source Oral Pulse Oximetry (%) 97 Oxygen Delivery Method Room Air Intake Visit Reasons: 2 wks tachycardia Intake Note: patient here for 2 week follow up on tachycardia. Pharmaceutical Service Representative Required: No Allergies morphine Allergy (Mild, Verified 01/30/24 11:40) patch on stomach Medication List - Last Reconciled 01/30/24 by Eliseo Dumont CNP clonazepam 1 mg PO BID metoprolol succinate ER 25 mg PO DAILY 30 days Tobacco use date assessed: 01/15/24 Dental Screening Dental Screen Date: 01/15/24 HPI HPI Comments History of Present Illness Details 33-year-old male presents for tachycardia follow-up. He admits to taking metoprolol 25 mg daily adverse reactions He notes that he continues to experience rapid heart rate which sometimes wakes him up in the middle of the night. He denies anxiety symptoms He states that he [place] [facility] [place] and was told the earliest appointment is in [facility] April. However, he opted to be placed on a wait list in case of patient's cancellation; he was not scheduled for April [facility] Medical History Diverticulitis Neck fracture Surgical History History of appendectomy H/O resection of small bowel Family History Mother Anxiety Father Anxiety Family/Other Anxiety Social History Housing: Apartment Patient Tobacco Use Status: Never used Tobacco e-Cigarette/Vaping Use: Former Use Second Hand Smoke Exposure: No service: No Current occupational status: employed Current occupation: [employer] Current occupational exposures/hazards: No Cognitive needs: No Hearing needs: No Vision needs: No Questionnaire Thrive Questionnaire Date Thrive assessed: 05/06/22 DAR-7 AMB Questionnaire DAR-7 Date DAR - 7 assessed: 01/15/24 Source: Developed by Drs. Geo Templeton, Ludmila BAshu Diallo and colleagues, with an educational janki from [employer]. Review of Systems Const Details: Const Denies chills, Denies fatigue, Denies fever(s), Denies headache(s) and Denies weakness ENT Denies dizziness and Denies headache(s) Card Denies chest pain, Denies lightheadedness, Denies dyspnea and Denies other (Palpitations) Resp Denies cough, Denies dyspnea, Denies wheezing and Denies other ( shortness of breath) GI Denies abdominal pain, Denies melena, Denies hematochezia, Denies change in bowel habits, Denies dyspepsia and Denies nausea Denies hematuria and Denies dysuria Musc Denies abnormal gait, Denies myalgias, Denies arthralgias, Denies numbness and Denies tingling Skin/Breast Denies rash, Denies unusual bruising and Denies wounds Neuro Denies abnormal gait, Denies dizziness, Denies headache(s), Denies memory loss, Denies numbness, Denies Sensory deficit (Neuro), Denies tingling and Denies weakness Psych Denies anxiety, Denies depression, Denies memory loss Endo Denies cold intolerance, Denies fatigue, Denies heat intolerance, Denies polydipsia and Denies polyuria Aller/Immun Denies wheezing Physical exam (Primary Care) Vital Signs: Last Vital Signs Temp 98.3 F 01/30/24 11:11 Pulse 109 H 01/30/24 11:11 Resp 16 01/30/24 11:11 BP 138/74 01/30/24 11:11 Pulse Ox 97 01/30/24 11:11 Oxygen Delivery Method Room Air 01/30/24 11:11 BMI result Body Mass Index 29.5 Tobacco/Smoking Status: Tobacco use Status Tobacco use date assessed 01/15/24 01/30/24 11:09 Patient Tobacco Use Status Never used Tobacco 01/30/24 11:09 e-Cigarette/Vaping Use Former Use 01/30/24 11:09 Thrive Assessment: Date of Thrive Assessment Date Thrive assessed 05/06/22 01/30/24 11:09 Const Other: General: no acute distress and well developed Nutritional Appearance: well nourished Orientation/consciousness: patient oriented x3 HENMT Head: Yes normocephalic and Yes atraumatic Eyes General: appearance normal, both eyes and all related structures Pupils: Equal, round and reactive pupils present EOM: EOMs intact bilaterally Resp Effort & Inspection: normal respiratory effort Auscultation: clear to auscultation bilaterally Cardio Rate: regular rate Rhythm: regular rhythm Heart sounds: S1 normal heart sound present, S2 normal heart sound present, no gallops, no murmurs and no rubs GI Palpation (GI): No Abdominal aortic bruit present, Soft to palpation, nontender, No hepatosplenomegaly present and No Rebound tenderness present Auscultation: normal bowel sounds General: Yes no CVA tenderness Back/Spine/Pelvis Back: no CVA tenderness Cervical Spine: cervical ROM normal and No Cervical spine tenderness Thoracic/Lumbar Spine: thoraco-lumbar ROM normal, No pain with thoraco-lumbar ROM, No thoracic spinal tenderness and No lumbar spinal tenderness Extrem General: Yes normal to inspection, No edema and No calf tenderness Skin General: warm and dry. Normal skin color. Normal skin turgor Neuro General: patient oriented x3, gait normal and no focal neuro deficit Cranial nerves: Yes Equal, round and reactive pupils present Cognition (Neuro): normal cognition Gait exam (Neuro): Normal gait present Sensory Exam: No Sensory deficit (Neuro) Psych Appearance: grossly normal Affect: normal affect Attitude: cooperative Thought process: Normal thought process present Assessment and Plan Assessment & Plan (1) Tachycardia: Code(s): R00.0 - Tachycardia, unspecified Plan: He continues to report rapid heart rate with sometimes wakes him up at night Heart rate is 109, rhythm is regular He is awaiting Cardiology consult. Encouraged to call Cardiology to schedule an appointment He has not had a Holter monitor test; will monitor this Anxiety is likely Continue with current treatment regimen Encouraged to follow-up with his psychiatrist as planned Return with 3 months or sooner with worsening or new symptoms Verbalized understanding and agreed with the treatment plan Orders: Orders ECG holter monitor 24 hour Today R00.0 - Tachycardia, unspecified Coding Level of Care Code Est Pt Level 4 (87092) Diagnoses Tachycardia R00.0
[2024-01-30 11:11] VITALS: BP 138/74; PULSE 109; RESP 16; TEMP 36.8; O2SAT 97; BMI 29.5
== END 2024-01-30 11:55 | disposition home or self-care (01) ==
PROVIDERS: PCP Nurse Practitioner Family; Visit Provider Nurse Practitioner Family
DX: R00.0 Tachycardia, unspecified (principal)
CPT/HCPCS: 99214

== ENCOUNTER → 2024-02-07 11:02 | Outpatient (REF) | payer OTHER, SELFPAY ==
--- NOTE | 2024-02-07 11:07 | HM_ITS ---
* Total monitoring time 1 day. * Underlying rhythm is sinus with an average rate of 87/Min. * Rare supraventricular ectopy. * No significant pauses or high-grade AV blocks. * No patient markers. No diary submitted. MTDD
== END ==
LOC: HO.CARD 11:02
PROVIDERS: PCP Nurse Practitioner Family; Visit Provider Nurse Practitioner Family
DX: R00.0 Tachycardia, unspecified (principal)
CPT/HCPCS: 93225

== ENCOUNTER → 2024-02-07 11:07 | Outpatient (BNV) | payer OTHER, SELFPAY | PROVIDERS: PCP Nurse Practitioner Family; Visit Provider Internal Medicine | DX: I47.10 Supraventricular tachycardia, unspecified (principal) | CPT/HCPCS: 93227 ==

== ENCOUNTER 2024-04-18 10:29 | Outpatient (AMB) | payer OTHER, SELFPAY ==
[2024-04-18 10:42] VITALS: BP 130/80; PULSE 96; BMI 30.1
--- NOTE | 2024-04-18 10:42 | A.OFFVIS_ITS ---
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 He does not have any documented coronary disease or myocardial infarction or cardiomyopathy. Over the last 6-7 months, he states that he has been getting various symptoms including shortness of breath with activity, racing heart among others. He states that the shortness of breath he is experiencing is much more profound than what feels like deconditioning. Any activity makes him short of breath and fatigue. He also gets his heart racing at times and on several occasions, heart rates have been in the 100s. He believes a lot of his issues started after drinking red bull about 7 months ago. He is also suspected to have sleep apnea but still awaiting sleep study and he states that it keeps getting delayed. [facility] Medical History Diverticulitis Neck fracture Surgical History History of appendectomy H/O resection of small bowel Family History (Updated 04/18/24 @ 10:46 by Magdalene Degroot CMA) Mother Anxiety Heart failure Father Anxiety Heart attack Family/Other Anxiety Social History (Updated 04/18/24 @ 10:46 by Magdalene Degroot CMA) Housing: Apartment Alcohol intake: never Patient Tobacco Use Status: Never used Tobacco e-Cigarette/Vaping Use: Former Use Second Hand Smoke Exposure: No service: No Current occupational status: employed Current occupation: [employer] Current occupational exposures/hazards: No Cognitive needs: No Hearing needs: No Vision needs: No Review of Systems Const Denies chills, Denies fatigue, Denies fever(s), Denies frequent falls, Denies weakness, Denies weight gain and Denies weight loss ENT Denies dizziness Card Denies chest pain, Denies leg edema, Denies lightheadedness, Denies palpitations, Denies dyspnea and Denies dyspnea on exertion Resp Denies cough, Denies dyspnea and Denies dyspnea on exertion GI Denies hematochezia Musc Denies abnormal gait, Denies muscle weakness, Denies numbness, Denies radiating pain into limb and Denies tingling Neuro Denies abnormal gait, Denies dizziness, Denies frequent falls, Denies numbness, Denies tingling and Denies weakness Endo Denies fatigue and Denies palpitations Physical Exam Vital Signs: Last Vital Signs Pulse 96 04/18/24 10:42 BP 130/80 04/18/24 10:42 BMI result Body Mass Index 30.1 Const General: comfortable and no acute distress Orientation/consciousness: patient oriented x3 HEENT Other: Unremarkable Head: Yes normal to inspection Neck Neck: Yes normal visual inspection Chest Chest palpation & inspection: normal inspection of the chest Resp Auscultation: clear to auscultation bilaterally Cardio Palpation: normal PMI Heart sounds: S1 normal heart sound present, S2 normal heart sound present, no gallops, no murmurs and no rubs GI Palpation (GI): Soft to palpation Back/Spine/Pelvis Other: unremarkable Skin General skin exam: no rashes or lesions noted Neuro General: patient oriented x3 Extrem General: Yes normal to inspection Psych Mental Status: mental status grossly normal Office Procedures EKG Details: EKG with underlying sinus rhythm at 96/Min; can not exclude old inferior infarct but more likely from his body habitus; [place] [id number], Complete Assessment & Plan Assessment & Plan (1) SOB (shortness of breath): Code(s): R06.02 - Shortness of breath Category: Medical (2) Heart palpitations: Code(s): R00.2 - Palpitations Category: Medical Plan In the Holter monitor, sinus rhythm at sinus tachycardia but otherwise unremarkable. With regard his shortness of breath/palpitations, possible deconditioning but he also needs workup for underlying cardiac etiology. We will start with an echocardiogram/stress test for further evaluation. Based on this, we will plan further care. With regard to his question of sleep apnea, obtain home sleep study. With regard to the use of metoprolol, may hold off for now. There is a question of high blood pressure as well and that will need to be followed up. There are some elevated blood pressures but nothing profoundly high. Discussed with significant other. Follow-up after testing. Orders: Orders CA echo stress exercise Today R06.02 - Shortness of breath RT home sleep study Today G47.33 - Obstructive sleep apnea (adult) (pediatric), R06.02 - Shortness of breath CA echo transthoracic complete Today R06.02 - Shortness of breath Coding Level of Care Code New Pt Level 4 (82689) Diagnoses SOB (shortness of breath) R06.02 Heart palpitations R00.2 CPT Codes EKG - CPT: 10145-[id number], Complete ([id number])
== END 2024-04-18 11:17 | disposition home or self-care (01) ==
PROVIDERS: PCP Nurse Practitioner Family; Visit Provider Internal Medicine
DX: R00.2 Palpitations (principal); R06.02 Shortness of breath; R94.31 Abnormal electrocardiogram [ECG] [EKG]
CPT/HCPCS: 93010; 99214

== ENCOUNTER → 2024-04-18 10:29 | Outpatient (BNVA) | payer OTHER, SELFPAY | PROVIDERS: PCP Nurse Practitioner Family; Visit Provider Internal Medicine | DX: R06.02 Shortness of breath (principal); R00.2 Palpitations; R94.31 Abnormal electrocardiogram [ECG] [EKG] | CPT/HCPCS: 93005; 99212 ==

== ENCOUNTER → 2024-05-28 12:48 | Outpatient (REF) | payer OTHER, SELFPAY ==
--- NOTE | 2024-05-28 12:50 | CA_ITS ---
Transthoracic Echocardiogram Patient (Last, First, Middle): Radames Mora, Gender: Male Date of : 1990 Age: 33 Procedure Date: 05/28/2024 Procedure Type: Transthoracic Echocardiogram Location: OP Height: 182.88 cm Weight: 99.79 kg BSA: 2.22 m2 Heart Rate: 114 bpm BP: 130 / 88 mmHg Registered Mail Clerk: BANDAR Referring MD: Pj Hagen MD Jointer Submarine Cable: Denver Dang MD Symptoms: R06.02 - Shortness of breath Study Quality: Adequate w contrast ECG Rhythm: Sinus Tachycardia Conclusions: - Essentially normal study Findings Procedure Information Contrast agent, definity, is being given per protocol without apparent complications. Left Ventricle Normal left ventricular size, thickness, and systolic function. The visually estimated ejection fraction is between 55-60%. Spectral Doppler is indicative of a normal filling pattern. Right Ventricle Normal right ventricular cavity size and systolic function. Atria Both atria are normal in size. Interatrial shunt cannot be excluded. Aortic Valve The aortic valve structure and function is likely normal. There is no aortic valve stenosis. There is no aortic valve regurgitation. Mitral Valve Normal mitral valve structure and function. There is trace mitral valve regurgitation. There is no mitral valve stenosis. Pulmonic Valve The pulmonic valve was not well visualized. Tricuspid Valve Likely normal tricuspid valve structure and function. Tricuspid regurgitation envelope is inadequate for calculation of right ventricular systolic pressure. Normal right atrial pressure. Great Vessels All visible segments of the aorta are normal in size. The pulmonary artery was not well visualized. Venous The inferior vena cava is normal in size and collapses greater than 50% with inspiration. Pericardium/Pleural There is no evidence of pericardial effusion. Prior Study Comparison No prior study available for comparison. Measurements 2D Linear Measurements IVSd: 0.83 0.6-0.9/0.6-1.0 cm LVIDd: 3.89 3.9-5.3/4.2-5.9 cm LVIDd Index: 1.75 2.4-3.2/2.2-3.1 cm/m2 LVIDs: 2.67 2.0-3.6 cm LVPWd: 0.83 0.7-1.1 cm LA Diam: 2.60 2.7-3.8/3.0-4.0 cm LAIDs Index: 1.17 1.5-2.3 cm/m2 LV Mass: 116.29 67-162/88-224 g LV Mass Index: 52.38 43-95/49-115 g/m2 LVOT Diam: 2.50 3.0+(-)1.3 cm 2D Systolic Function EF 4C: 58.60 >55% EF 2C: 54.60 >55% EF BiP: 56.30 >55% Mitral Valve MV Pk E: 0.65 MV PK A: 0.61 MV Decel Time: 76.00 E/A: 1.10 E'Lateral: 12.20 E'Medial: 8.38 E/E' Med: 7.70 E/E' Lat: 5.30 PHT: 22.00 MVA PHT: 10.00 Decel [place]: 8.49 Aortic Valve AoV Pk Darryl: 1.02 AoV Mn Darryl: 0.69 AoV VTI: 0.16 AoV Pk Grad: 4.00 Aov Mn Grad: 2.00 CINTHYA Cont.VTI: 4.61 LVOT LVOT Pk Darryl: 0.88 LVOT Mn Darryl: 0.62 LVOT VTI: 0.15 LVOT Pk Grad: 3.00 LVOT Mn Grad: 2.00 LVOT Diam: 2.50 LVOT Area: 4.91 Diastolic Function MV Pk E: 0.65 MV Pk A: 0.61 E/A: 1.10 E'Medial: 8.38 E/E' Med: 7.70 E' Laterial: 12.20 E/E' Lat: 5.30 Right Ventricle TAPSE (mm): 25.70 TVS' Darryl: 13.20 Tricuspid Valve RA Press: 3.00 Great Vessels Aorta Sinus of Valsalva: 3.58 2.0-3.5 cm Ao Asc: 2.80 2.1-3.4 cm Updated in Other Vendor System with Status of Final Denver Dang MD electronically signed on 05/28/2024 6:04:03 PM with status of Final
--- OUTSIDE RECORDS SUMMARY | 2024-05-28 12:51 | XMS_ITS | Continuity of Care Document ---
Author Organization MARIAMA Castaneda [employer] [facility], [address] Address [address] [place] [phone] Assessment No assessment recorded. Plan of Treatment Reminders Order Date Submit Date Provider Last Modified By Organization Details Last Modified Time Details Appointments None record ed. Lab None record ed. Referral None record ed. Procedures None record ed. Surgeries None record ed. Imaging None record ed. Medication Orders None record ed. Patient TargetsNo targets recorded. Patient InstructionsNo instructions recorded. Reason for Referral None Reported. Procedures Surgical History Date Name Laterality Status Provider Name and Address Organization Details Recorded Time OC-UDS Send Out Template NON DOT completed Zackary Johnson [employer] 04/20/2024 16:03:08 Imaging Results None recorded. Procedure Notes None recorded. Medical Equipment None Reported. Medications Name Sig Start Date Stop Date Status Note LastModified by Organization Details LastModified Time cyclobenzaprine 10 mg tablet TAKE 1 TABLET BY MOUTH THREE TIMES A DAY FOR 30 DAYS active Not Available Not Available No t Available clonazepam 1 mg tablet TAKE 1 TABLET BY MOUTH IN THE MORNING AND A 1/2 TABLET AT NIGHT active Not Available Not Available No t Available metoprolol succinate ER 25 mg tablet,extended release 24 hr TAKE 1 TABLET BY MOUTH EVERY DAY active Not Available Not Available No t Available bupropion HCl XL 150 mg 24 hr tablet, extended release TAKE 1 TABLET BY MOUTH EVERY DAY active Not Available Not Available No t Available metoprolol tartrate 25 mg tablet TAKE 1/2 TABLET BY MOUTH DAILY FOR 30 DAYS active Not Available Not Available No t Available duloxetine 20 mg capsule,delayed release TAKE 1 CAPSULE BY MOUTH ONCE A DAY FOR MOOD IN 2 WEEKS active Not Available Not Available No t Available duloxetine 30 mg capsule,delayed release TAKE 1 CAPSULE BY MOUTH ONCE A DAY FOR MOOD active Not Available Not Available No t Available Vitals None Recorded Social History None recorded. Functional Status None recorded. Mental Status None recorded. Family History Nothing Reported. Medical History No medical history recorded. Past Encounters Encounter ID Performer Location Encounter Start Date Encounter Closed Date Diagnosis/Indication Diagnosis SNOMED-CT Code Diagnosis ICD10 Code [id number] [place]UMIKA [place]MAN [place] [address] [address] 04/20/2024 15:35:46 04/20/2024 16:03:59 History and physical examination, occupation [id number] Z02.1 Health Concerns Section Related Observation LastModified by Organization Detai ls LastModified Time None Recorded Concern Status LastModified by Organization Details LastModified Time None Recorded Payers Encounter Date Sequence Insurance Name Policy Number Policy Kraus Covered Member ID Kraus Member ID Guarantor Name 04/20/2024 OC-ESCREEN Oc-Escree n [[id number]] [id number] RA Radames Mora
--- OUTSIDE RECORDS SUMMARY | 2024-05-28 12:51 | XMS_ITS | Data Portability ---
Author Organization MARIAMA Luna [employer] [facility], [address] Address [address] [place] [address] Assessment No assessment recorded. Plan of Treatment [...] Send Out Template NON DOT completed Zackary LESLIE [employer] 04/20/2024 16:03:08 Imaging Results None recorded. Procedure [...] Diagnosis/Indication Diagnosis SNOMED-CT Code Diagnosis ICD10 Code [id number] BHUMIKA HILLMAN MD [address] [address] 04/20/2024 15:35:46 04/20/2024 16:03:59 History and physical examination, occupation [id number] Z02.1 Health Concerns Section Related Observation LastModified by Organization Detai ls LastModified Time None Recorded Concern Status LastModified by Organization Details LastModified Time None Recorded Advance Directives Directive None Recorded Payers Encounter Date Sequence Insurance Name Policy Number Policy Kraus Covered Member ID Kraus Member ID Guarantor Name 04/20/2024 OC-ESCREEN Oc-Escree n [[id number]] [id number] RA Radames Mora
== END ==
LOC: HO.CARD 12:48
PROVIDERS: PCP Nurse Practitioner Family; Visit Provider Internal Medicine
DX: R06.02 Shortness of breath (principal)
CPT/HCPCS: 93306; Q9957

== ENCOUNTER → 2024-05-28 12:50 | Outpatient (BNV) | payer OTHER, SELFPAY | PROVIDERS: PCP Nurse Practitioner Family; Visit Provider Internal Medicine Cardiovascular Disease | DX: R06.02 Shortness of breath (principal) | CPT/HCPCS: 93306 ==

== ENCOUNTER → 2024-06-19 12:53 | Outpatient (REF) | payer OTHER, SELFPAY ==
--- OUTSIDE RECORDS SUMMARY | 2024-06-19 14:45 | XMS_ITS | Data Portability ---
Author Organization MARIAMA Luna [employer] [facility], [address] Address [address] [place] [address] Assessment No assessment recorded. Plan of Treatment [...] Out Template NON DOT completed Zackary LESLIE [employer] 04/20/2024 16:03:08 Imaging Results None recorded. Procedure [...] Diagnosis/Indication Diagnosis SNOMED-CT Code Diagnosis ICD10 Code Diagnosis Note [id number] BHUMIKA HILLMAN MD [address] [address] 04/20/2024 15:35:46 04/20/2024 16:03:59 History and physical examination, occupation [id number] Z02.1 Health Concerns Section Related Observation LastModified by Organization Detai ls LastModified Time None Recorded Concern Status LastModified by Organization Details LastModified Time None Recorded Advance Directives Directive None Recorded Payers Encounter Date Sequence Insurance Name Policy Number Policy Kraus Covered Member ID Kraus Member ID Guarantor Name 04/20/2024 OC-ESCREEN [employer] n [[id number]] [id number] RA Radames Mora
== END ==
LOC: HO.SL 12:53
PROVIDERS: PCP Nurse Practitioner Family; Visit Provider Internal Medicine
DX: G47.33 Obstructive sleep apnea (adult) (pediatric) (principal); R06.02 Shortness of breath
CPT/HCPCS: 95806

== ENCOUNTER → 2024-06-19 13:02 | Outpatient (BNV) | payer OTHER, SELFPAY | PROVIDERS: PCP Nurse Practitioner Family; Visit Provider Internal Medicine | DX: R06.83 Snoring (principal); G47.10 Hypersomnia, unspecified | CPT/HCPCS: 95806 ==

== ENCOUNTER → 2024-06-21 10:40 | Outpatient (REF) | payer OTHER, SELFPAY ==
--- NOTE | 2024-06-21 10:49 | CA_ITS ---
Acquisition Time: 2024-06-21 10:59:04 Total Exercise Time: 00:07:31 Test Indications: SOB Medications: SEE H&P Protocol: CHEVY Max HR: 187 BPM 99% of Pred: 188 BPM Max BP: 170/68 mmHG Max Work Load: 9.3 METS Exercise Stress Test with exercise 7 mins 31 secs of Chevy Protocol, achieving 97% MPHR, with reports of SOB, no chest discomfort, without any arrythmias, with normotensive response to exercise. Without EKG changes meeting criteria for ischemia. Echo images obtained by tech at rest and post peak exercise. Definity contrast used. In recovery, breathing returned to baseline. 20 minutes into recovery, Heart rate still in the 120s to 130s, one time PO Metoprolol 25 mg given. Will restart him on Metoprolol. Test reviewed with . Referred By: Pj Hagen Electronically Signed By: Naeem Iqbal
--- OUTSIDE RECORDS SUMMARY | 2024-06-21 12:15 | XMS_ITS | Data Portability ---
Author Organization MARIAMA Luna [employer] [facility], [address] Address [address] [place] [address] Assessment No assessment recorded. Plan of Treatment [...] Out Template NON DOT completed Zackary LESLIE [id number] 04/20/2024 16:03:08 Imaging Results None recorded. Procedure [...] SNOMED-CT Code Diagnosis ICD10 Code Diagnosis Note [id number] BHUMIKA HILLMAN MD [address] [address] 04/20/2024 15:35:46 04/20/2024 16:03:59 History and physical examination, occupation [id number] Z02.1 Health Concerns Section Related Observation LastModified by Organization Detai ls LastModified Time None Recorded Concern Status LastModified by Organization Details LastModified Time None Recorded Advance Directives Directive None Recorded Payers Encounter Date Sequence Insurance Name Policy Number Policy Kraus Covered Member ID Kraus Member ID Guarantor Name 04/20/2024 OC-ESCREEN [employer]-Escree n [[id number]] [id number] RA Radames Mora
== END ==
LOC: HO.CARD 10:40
PROVIDERS: PCP Nurse Practitioner Family; Visit Provider Internal Medicine
DX: R06.02 Shortness of breath (principal)
CPT/HCPCS: 93350; Q9957

== ENCOUNTER 2024-07-18 12:34 | Outpatient (AMB) | payer OTHER, SELFPAY ==
[2024-07-18 12:43] VITALS: BP 138/90; PULSE 119; BMI 31.3
--- NOTE | 2024-07-18 12:43 | MHC.OFFVIS ---
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 Recently seen in consultation. He does not have any documented coronary disease or myocardial infarction or cardiomyopathy. Over the last several months, he states that he has been getting various symptoms including shortness of breath with activity, racing heart among others. Over the last few years, he has put on a lot of weight. He is wondering if that is the reason for all his symptoms. Since last seen, he has completed an echocardiogram, stress test as well as sleep study. Feels more or less the same. [facility] Medical History Diverticulitis Neck fracture Surgical History History of appendectomy H/O resection of small bowel Family History Mother Anxiety Heart failure Father Anxiety Heart attack Family/Other Anxiety Social History Housing: Apartment Alcohol intake: never Patient Tobacco Use Status: Never used Tobacco e-Cigarette/Vaping Use: Former Use Second Hand Smoke Exposure: No service: No Current occupational status: employed Current occupation: [email or web address] Current occupational exposures/hazards: No Cognitive needs: No Hearing needs: No Vision needs: No Review of Systems Const Denies chills, Denies fatigue, Denies fever(s), Denies weight gain and Denies weight loss ENT Denies dizziness Card Denies chest pain, Denies leg edema, Denies lightheadedness, Denies palpitations, Reports dyspnea on exertion, Denies orthopnea and Denies other Resp Denies cough and Reports dyspnea on exertion GI Denies hematochezia and Denies change in stool character Musc Denies abnormal gait, Denies muscle weakness, Denies numbness, Denies radiating pain into limb and Denies tingling Neuro Denies abnormal gait, Denies dizziness, Denies numbness and Denies tingling Endo Denies fatigue and Denies palpitations Physical Exam Vital Signs: Last Vital Signs Pulse 119 H 07/18/24 12:43 BP 138/90 H 07/18/24 12:43 BMI result Body Mass Index 31.3 Const General: comfortable and no acute distress Orientation/consciousness: patient oriented x3 HEENT Other: Unremarkable Head: Yes normal to inspection Neck Neck: Yes normal visual inspection Chest Chest palpation & inspection: normal inspection of the chest Resp Auscultation: clear to auscultation bilaterally Cardio Palpation: normal PMI Heart sounds: S1 normal heart sound present, S2 normal heart sound present, no gallops, no murmurs and no rubs GI Palpation (GI): Soft to palpation Back/Spine/Pelvis Other: unremarkable Skin General skin exam: no rashes or lesions noted Neuro General: patient oriented x3 Extrem General: Yes normal to inspection Psych Mental Status: mental status grossly normal Assessment & Plan Assessment & Plan (1) SOB (shortness of breath): Code(s): R06.02 - Shortness of breath Category: Medical (2) Heart palpitations: Code(s): R00.2 - Palpitations Category: Medical (3) Obesity: Code(s): E66.9 - Obesity, unspecified Category: Medical (4) Physical deconditioning: Code(s): R53.81 - Other malaise Category: Medical Plan Cardiac studies reviewed. Echocardiogram with preserved LVEF, 55-60%. No significant valvular findings and otherwise unremarkable. In the stress test, he was able to do 9.3 METS on Henrik protocol and reached 97% of max predicted heart rate. No angina. Normal blood pressure response. No EKG evidence of ischemia. Echocardiogram component unremarkable. There is mention of impaired filling pattern but upon my review, difficult to say as he is tachycardic. However, no evidence of any exercise-induced diastolic dysfunction or pulmonary hypertension. In the Holter monitor, underlying rhythm is sinus with an average rate of 87/Min. About 23% of the time, rate > 100/Min. Sleep study is negative for obstructive sleep apnea. Overall, significant weight gain over the last few years, about 40-50 lb. Possible deconditioning. No evidence of significant cardiac disease based on the above testing. Suspect symptoms are related to weight gain/deconditioning. Inappropriate sinus tachycardia is also less likely. Main recommendation is to lose weight and slowly start exercising. Hoping that he returns to his baseline weight, he should feel much better. In this process, if indeed he feels any cardiac symptoms, advised him to contact us immediately. With regard to metoprolol, no specific indication but if he feels frequent palpitations may use as needed-at least for the foreseeable future. Otherwise, mainly reassurance. Follow-up in 1 year. He will call with any interim concerns. Total time spent including review of data, counseling, documentation, coordination of care-32 minutes. Coding Level of Care Code Est Pt Level 4 (21529) Diagnoses SOB (shortness of breath) R06.02 Heart palpitations R00.2 Obesity E66.9 Physical deconditioning R53.81
--- OUTSIDE RECORDS SUMMARY | 2024-07-18 13:28 | XMS_ITS | Data Portability ---
Author Organization MARIAMA Luna [employer] [facility], [address] Address [address] [place] [address] Assessment No assessment recorded. Plan of Treatment [...] Out Template NON DOT completed Zackary LESLIE [facility] 04/20/2024 16:03:08 Imaging Results None recorded. Procedure [...] SNOMED-CT Code Diagnosis ICD10 Code Diagnosis Note [id number] BHUMIKA HILLMAN MD [address] [address] 04/20/2024 15:35:46 04/20/2024 16:03:59 History and physical examination, occupation [id number] Z02.1 Health Concerns Section Related Observation LastModified by Organization Detai ls LastModified Time None Recorded Concern Status LastModified by Organization Details LastModified Time None Recorded Advance Directives Directive None Recorded Payers Encounter Date Sequence Insurance Name Policy Number Policy Kraus Covered Member ID Kraus Member ID Guarantor Name 04/20/2024 OC-ESCREEN Oc-Escree n [[id number]] [id number] RA Radames Mora
== END 2024-07-18 13:07 | disposition home or self-care (01) ==
PROVIDERS: PCP Nurse Practitioner Family; Visit Provider Internal Medicine
DX: R06.02 Shortness of breath (principal); R00.2 Palpitations; E66.9 Obesity, unspecified; R53.81 Other malaise
CPT/HCPCS: 99214

== ENCOUNTER → 2024-07-18 12:34 | Outpatient (BNVA) | payer OTHER, SELFPAY | PROVIDERS: PCP Nurse Practitioner Family; Visit Provider Internal Medicine | DX: R06.02 Shortness of breath (principal); R00.2 Palpitations; R53.81 Other malaise; E66.9 Obesity, unspecified; Z68.31 Body mass index [BMI] 31.0-31.9, adult | CPT/HCPCS: 99212 ==

== ENCOUNTER 2024-12-16 12:53 | Outpatient (REF) | payer OTHER, SELFPAY ==
--- NOTE | ~2024-12-16 | XR_ITS ---
EXAMINATION: XR LUMBOSACRAL SPINE CLINICAL INFORMATION: MUSCLE SPASM OF BACK, VERTEBROGENIC LOW BACK PAIN COMPARISON: None available. TECHNIQUE: Three views of the lumbosacral spine. FINDINGS: The vertebral bodies and posterior elements are normal. The disc spaces are preserved and the vertebral alignment is normal. The paraspinal soft tissues are normal. XR/XR lumbar spine 2-3V IMPRESSION: Unremarkable lumbar spine Electronically signed by: Kurtis Guevara MD 12/16/2024 01:32 PM EDT
--- OUTSIDE RECORDS SUMMARY | 2024-12-16 13:36 | XMS_ITS | Data Portability ---
Author Organization MARIAMA Castaneda [employer] [facility] [address] Address [address] [place] [address] Assessment No assessment recorded. Plan of Treatment [...] Out Template NON DOT completed Zackary LESLIE [employer] 04/20/2024 16:03:08 Imaging Results None recorded. Procedure [...] SNOMED-CT Code Diagnosis ICD10 Code Diagnosis Note [id number] MARIAMA HERRING [address] [address] 04/20/2024 15:35:46 04/20/2024 16:03:59 History and physical examination, occupation [id number] Z02.1 Health Concerns Section Related Observation LastModified by Organization Detai ls LastModified Time None Recorded Concern Status LastModified by Organization Details LastModified Time None Recorded Advance Directives Directive None Recorded Payers Insurance Date Sequence Insurance Name Policy Number Policy Kraus Covered Member ID Kraus Member ID Guarantor Name 04/20/2024 OC-ESCREEN [employer] n [[id number]] [id number] RA Radames Mora
== END 2024-12-16 12:54 | disposition home or self-care (01) ==
LOC: HO.XRAY 12:53
PROVIDERS: PCP Nurse Practitioner Family; Visit Provider Physician Assistant
DX: M62.830 Muscle spasm of back (principal); M54.51 Vertebrogenic low back pain
CPT/HCPCS: 72100

== ENCOUNTER → 2024-12-16 12:59 | Outpatient (BNV) | payer OTHER, SELFPAY | PROVIDERS: PCP Nurse Practitioner Family; Visit Provider Radiology Diagnostic Radiology | DX: M54.50 Low back pain, unspecified (principal); M62.830 Muscle spasm of back | CPT/HCPCS: 72100 ==